=== PATIENT | female | born 1985 | race Hispanic/Latino ===

== ENCOUNTER 2018-04-08 20:25 | Observation (INO) | payer MEDICARE ==
[~2018-04-08] VITALS: Ht 154.9 cm; Wt 133.4 kg
[~2018-04-08 20:25] MED LIST: ACET1TAB12 PO
[2018-04-08] MEDS ORDERED: LACTATED RINGERS 1000ML IV PRN (21:00)
[2018-04-08 21:06] LABS: APPEARANCE,URINE CLOUDY (CLEAR); BILIRUBIN,URINE SMALL (NEGATIVE); COLOR,URINE YELLOW (YELLOW); GLUCOSE, URINE (UA) NEGATIVE (NEGATIVE); KETONES,URINE 40 mg/dL (NEGATIVE); LEUKOCYTE ESTERASE ,URINE MODERATE (NEGATIVE); NITRATE,URINE NEGATIVE (NEGATIVE); OCCULT BLOOD,URINE NEGATIVE (NEGATIVE); PROTEIN,URINE TRACE (NEGATIVE)
[2018-04-08 21:16] LABS: BACTERIA,URINE Few /HPF (None Seen); SQUAMOUS EPITHELIAL CELL,UR Moderate /HPF (0-2); WBC,URINE 26-50 /HPF (0-1)
[2018-04-08 21:17] LABS: AMPHET/METH SCREEN,URINE NEGATIVE (NEGATIVE); BARBITURATE SCREEN, URINE NEGATIVE (NEGATIVE); BENZODIAZEPINES SCREEN,URINE NEGATIVE (NEGATIVE); CANNABINOID SCREEN,URINE NEGATIVE (NEGATIVE); COCAINE SCREEN,URINE POSITIVE (NEGATIVE); MUCUS,URINE Rare LPF (None Seen); OPIATE SCREEN,URINE NEGATIVE (NEGATIVE); PHENCYCLIDINE SCREEN,URINE NEGATIVE (NEGATIVE)
[2018-04-08] MEDS ORDERED: TYL3 PO (22:07)
[2018-04-08 22:18] VITALS: BP 112/53
[2018-04-08] MEDS ORDERED: LACTATED RINGERS 1000ML 1,000 ML IV ONE (22:37)
[2018-04-08] MEDS ORDERED: LACTATED RINGERS 1000ML 1,000 ML IV SCH (23:00)
== END 2018-04-08 22:20 | disposition home or self-care (01) ==
LOC: EDH 20:25 → LDH 20:26
PROVIDERS: ADMIT Obstetrics & Gynecology; ATTEND Obstetrics & Gynecology
DX: O26.892 Other specified pregnancy related conditions, second trimester (principal); R10.31 Right lower quadrant pain; O99.343 Other mental disorders complicating pregnancy, third trimester; F32.9 Major depressive disorder, single episode, unspecified; O99.333 Smoking (tobacco) complicating pregnancy, third trimester; F17.210 Nicotine dependence, cigarettes, uncomplicated; Z3A.24 24 weeks gestation of pregnancy
CPT/HCPCS: 80305; 81001; 96360; 99285; G0378 ×2; J7120

== ENCOUNTER 2018-09-30 16:02 | Emergency (ER) | payer MEDICARE ==
[~2018-09-30 16:02] MED LIST changes: +TYL3 PO
== END 2018-09-30 16:32 | disposition home or self-care (01) ==
LOC: EDH 16:02
DX: Z48.01 Encounter for change or removal of surgical wound dressing (principal); Z88.0 Allergy status to penicillin
CPT/HCPCS: 99281